=== PATIENT | male | born 1980 | race Caucasian/White ===

== ENCOUNTER 2017-12-01 16:16 | Emergency (ER) | payer OTHER ==
[~2017-12-01] VITALS: Ht 177.8 cm; Wt 100.5 kg
[2017-12-01 16:22] VITALS: BP 144/82; PULSE 91; RESP 18; TEMP 98.3; O2SAT 97
[2017-12-01] MEDS ORDERED: TETANUS/DIPHTHERIA TOXOID ADULT 0.5 ML VIAL IM ONE (17:15)
--- NOTE | 2017-12-01 17:21 | RADRPT ---
EXAM DATE/TIME: 12/01/2017 17:14 [place] COMPARISON: No previous studies available for comparison. INDICATIONS : Patient had syncopal episode and hit head, laceration to head. RADIATION DOSE: 38.47 CTDIvol (mGy) MEDICAL HISTORY : None SURGICAL HISTORY : None. ENCOUNTER: Initial ACUITY: 1 day PAIN SCALE: 7/10 LOCATION: cranial TECHNIQUE: Multiple contiguous axial images were obtained of the head. Using automated exposure control and adj ustment of the mA and/or kV according to patient size, radiation dose was kept as low as reasonably a chievable to obtain optimal diagnostic quality images. DICOM format image data is available electro nically for review and comparison. FINDINGS: CEREBRUM: The ventricles are normal for age. No evidence of midline shift, mass lesion, hemorrhage or acute in farction. No extra-axial fluid collections are seen. POSTERIOR FOSSA: The cerebellum and brainstem are intact. The 4th ventricle is midline. The cerebellopontine angle i s unremarkable. EXTRACRANIAL: The visualized portion of the orbits is intact. SKULL: The calvaria is intact. No evidence of skull fracture. There is soft tissue swelling and irregularit y over the right frontal bone. CONCLUSION: Soft tissue swelling and irregularity over the right frontal bone with no evidence of fracture or hemorrhage. Hernan Pereira MD on December 01, 2017 at 17:18 Board Certified Radiologist. This report was verified electronically.
[2017-12-01 17:24] LABS: AUTOMATED NEUTROPHIL # 6.1 TH/MM3 (1.8-7.7); BASOPHIL % 0.2 % (0.0-2.0); EOSINOPHIL # 0.2 TH/MM3 (0-0.4); EOSINOPHIL % 2.4 % (0.0-4.0); HEMATOCRIT 46.3 % (39.0-51.0); HEMOGLOBIN 15.6 GM/DL (13.0-17.0); LYMPH % 21.7 % (9.0-44.0); LYMPHOCYTE # 1.9 TH/MM3 (1.0-4.8); MEAN CELL VOLUME 85.2 FL (80.0-100.0); MEAN CORPUSCULAR HEMOGLOBIN 28.7 PG (27.0-34.0); MEAN CORPUSCULAR HGB CONC 33.7 % (32.0-36.0); MEAN PLATELET VOLUME 7.6 FL (7.0-11.0); MONO % 4.8 % (0.0-8.0); MONOCYTE # 0.4 TH/MM3 (0-0.9); NEUT % 70.9 % (16.0-70.0); PLATELET COUNT 272 TH/MM3 (150-450); RED BLOOD COUNT 5.43 MIL/MM3 (4.50-5.90); RED CELL DISTRIBUTION WIDTH 13.6 % (11.6-17.2); WHITE BLOOD COUNT 8.6 TH/MM3 (4.0-11.0)
[2017-12-01 17:32] LABS: ALBUMIN 4.1 GM/DL (3.4-5.0); ALT (GPT) 46 U/L (12-78); AST (GOT) 23 U/L (15-37); BICARBONATE 24.6 MEQ/L (21.0-32.0); BLOOD UREA NITROGEN 14 MG/DL (7-18); CALCIUM 8.8 MG/DL (8.5-10.1); CHLORIDE 108 MEQ/L (98-107); CREATININE 0.99 MG/DL (0.60-1.30); GLOMERULAR FILTRATION RATE 85 ML/MIN (>89); GLUCOSE,RANDOM 87 MG/DL (74-106); INTERNATIONAL NORMALIZED RATIO 0.9 RATIO; MAGNESIUM 2.4 MG/DL (1.5-2.5); PROTHROMBIN TIME - PATIENT 9.5 SEC (9.8-11.6); SODIUM (NA) 142 MEQ/L (136-145)
--- NOTE | 2017-12-01 17:33 | PD ---
HPI Chief Complaint: Syncope/Near-Syncope Time Seen by Provider: 17:02 Travel History International Travel<30 days: No Contact w/Intl Traveler<30days: No Traveled to known affect area: No History of Present Illness HPI 29-year-old male arrives following syncope episode. He was at work. He reports a severe cough and losing consciousness and falling to the ground striking his forehead against a concrete. Positive loss of consciousness reported. No fecal urinary incontinence. The patient woke up immediately and jump back to his feet. He reports he is a heavy cough for and that he is a smoker 2. He reports similar prior episodes have occurred. No chest pain or shortness of breath. Mild cephalgia reported to have a ER evaluation. Bleeding stopped with a bandage. [facility] Social History Tobacco Use: Yes Allergies-Medications (Allergen,Severity, Reaction): Coded Allergies: No Known Allergies (Unverified , 12/01/17) Review of Systems Except as stated in HPI: all other systems reviewed are Neg General / Constitutional: No: Fever Physical Exam Narrative GENERAL: 29-year-old male well-nourished well-developed no acute distress Vital Signs Date Time Temp Pulse Resp B/P (MAP) Pulse Ox O2 Delivery O2 Flow Rate FiO2 12/01/17 16:22 98.3 91 18 144/82 (102) 97 SKIN: Warm and dry. HEAD: Atraumatic. Normocephalic. 4 cm laceration just above the right eyebrow. EYES: Pupils equal and round. No scleral icterus. No injection or drainage. ENT: No nasal bleeding or discharge. Mucous membranes pink and moist. NECK: Trachea midline. No JVD. CARDIOVASCULAR: Regular rate and rhythm. RESPIRATORY: No accessory muscle use. Clear to auscultation. Breath sounds equal bilaterally. GASTROINTESTINAL: Abdomen soft, non-tender, nondistended. Hepatic and splenic margins not palpable. MUSCULOSKELETAL: Extremities without clubbing, cyanosis, or edema. No obvious deformities. NEUROLOGICAL: Awake and alert. No obvious cranial nerve deficits. Motor grossly within normal limits. Five out of 5 muscle strength in the arms and legs. Normal speech. PSYCHIATRIC: Appropriate mood and affect; insight and judgment normal. Data Data Last Documented VS Vital Signs Date Time Temp Pulse Resp B/P (MAP) Pulse Ox O2 Delivery O2 Flow Rate FiO2 12/01/17 16:22 98.3 91 18 144/82 (102) 97 Orders Orders Electrocardiogram (12/01/17 16:24) Complete Blood Count With Diff (12/01/17 16:24) Comprehensive Metabolic Panel (12/01/17 16:24) Magnesium (Mg) (12/01/17 16:24) Ckmb (Isoenzyme) Profile (12/01/17 16:24) Troponin I (12/01/17 16:24) Act Partial Throm Time (Ptt) (12/01/17 16:24) Prothrombin Time / Inr (Pt) (12/01/17 16:24) Ct Brain W/O Iv Contrast(Rout) (12/01/17 16:24) Tetanus/Diphtheria Tox Adult (Tetanus/Di (12/01/17 17:15) CKMB (12/01/17 17:00) CKMB% (12/01/17 17:00) Ed Discharge Order (12/01/17 18:32) Labs Laboratory Tests Test 12/01/17 17:00 White Blood Count 8.6 TH/MM3 Red Blood Count 5.43 MIL/MM3 Hemoglobin 15.6 GM/DL Hematocrit 46.3 % Mean Corpuscular Volume 85.2 FL Mean Corpuscular Hemoglobin 28.7 PG Mean Corpuscular Hemoglobin Concent 33.7 % Red Cell Distribution Width 13.6 % Platelet Count 272 TH/MM3 Mean Platelet Volume 7.6 FL Neutrophils (%) (Auto) 70.9 % Lymphocytes (%) (Auto) 21.7 % Monocytes (%) (Auto) 4.8 % Eosinophils (%) (Auto) 2.4 % Basophils (%) (Auto) 0.2 % Neutrophils # (Auto) 6.1 TH/MM3 Lymphocytes # (Auto) 1.9 TH/MM3 Monocytes # (Auto) 0.4 TH/MM3 Eosinophils # (Auto) 0.2 TH/MM3 Basophils # (Auto) 0.0 TH/MM3 CBC Comment DIFF FINAL Differential Comment Prothrombin Time 9.5 SEC Prothromb Time International Ratio 0.9 RATIO Activated Partial Thromboplast Time 24.3 SEC Blood Urea Nitrogen 14 MG/DL Creatinine 0.99 MG/DL Random Glucose 87 MG/DL Total Protein 7.9 GM/DL Albumin 4.1 GM/DL Calcium Level 8.8 MG/DL Magnesium Level 2.4 MG/DL Alkaline Phosphatase 91 U/L Aspartate Amino Transf (AST/SGOT) 23 U/L Alanine Aminotransferase (ALT/SGPT) 46 U/L Total Bilirubin 0.3 MG/DL Sodium Level 142 MEQ/L Potassium Level 3.8 MEQ/L Chloride Level 108 MEQ/L Carbon Dioxide Level 24.6 MEQ/L Anion Gap 9 MEQ/L Estimat Glomerular Filtration Rate 85 ML/MIN Total Creatine Kinase 170 U/L Creatine Kinase MB 1.4 NG/ML Troponin I LESS THAN 0.02 NG/ML MDM Medical Decision Making Medical Screen Exam Complete: Yes Emergency Medical Condition: Yes Medical Record Reviewed: Yes Differential Diagnosis Intracranial hemorrhage, skull fracture, laceration, anemia, arrhythmia, electrolyte imbalance Narrative Course CBC & BMP Diagram 12/01/17 17:00 Total Protein 7.9, Albumin 4.1, Calcium Level 8.8, Magnesium Level 2.4, Alkaline Phosphatase 91, Aspartate Amino Transf (AST/SGOT) 23, Alanine Aminotransferase (ALT/SGPT) 46, Total Bilirubin 0.3 Troponin less than 0.[address] 12/01/17 1624 Signed Impressions: Service Date/Time: Friday, December 01, 2017 17:14 - CONCLUSION: Soft tissue swelling and irregularity over the right frontal bone with no evidence of fracture or hemorrhage. Hernan Pereira MD Laceration repaired by the undersigned. EKG shows a sinus rhythm with normal axis and intervals no preexcitation morphology Patient is ready for discharge. Procedures Procedure Narrative LACERATION LOCATION: Right forehead LENGTH: 4 cm NUMBER OF STITCHES/QUE: 10 external, 2 internal REPAIR: The area of the laceration was prepped with Betadine and sterilely draped. The laceration was infiltrated with lidocaine with epinephrine. The wound was copiously irrigated and explored without evidence of foreign body, tendon injury or neurovascular injury. The wound was closed using 5-0 Ethilon. This was a 2 layer repair. With 2 5-0 Vicryl internal sutures. a sterile dressing was applied. The patient was advised to keep the dressing clean and dry. Patient tolerated the procedure well. Diagnosis Primary Impression: Syncope and collapse Additional Impression: Laceration of scalp Qualified Codes: S01.01XA - Laceration without foreign body of scalp, initial encounter Referrals: RETURN IN 9 DAYS FOR SUTURE REMOVAL Med/Other Pt SpecificInfo: No Change to Meds Disposition: DISCHARGE HOME Condition: Stable Maciel,Maynor C. MD Dec 01, 2017 17:33
[2017-12-01 17:38] LABS: ALKALINE PHOSPHATASE 91 U/L (45-117); TOTAL BILIRUBIN ADULT 0.3 MG/DL (0.2-1.0); TOTAL PROTEIN 7.9 GM/DL (6.4-8.2); TROPONIN I LESS THAN 0.02 NG/ML (0.02-0.05)
[2017-12-01 18:56] VITALS: BP 133/77; PULSE 91; RESP 16; O2SAT 98
--- NOTE | 2017-12-01 21:57 | EKG ---
Date Performed: 12/01/2017 Time Performed: 16:56:19 PTAGE: 37 years EKG: Sinus rhythm LOW QRS VOLTAGE IN EXTREMITY LEADS BORDERLINE ECG NO PREVIOUS TRACING DOCTOR: Todd Arevalo Interpretating Date/Time 12/01/2017 21:56:00
== END 2017-12-01 18:56 | disposition home or self-care (01) ==
LOC: NEPE 16:16
DX: R55 Syncope and collapse (principal); S01.01XA Laceration without foreign body of scalp, initial encounter; R94.31 Abnormal electrocardiogram [ECG] [EKG]; W01.198A Fall on same level from slipping, tripping and stumbling with subsequent striking against other object, initial encounter; Z72.0 Tobacco use; Z23 Encounter for immunization
CPT/HCPCS: 12052; 70450; 80053; 82550; 82552; 83735; 84484; 85025; 85610; 85730; 90471; 90714; 93005

== ENCOUNTER 2017-12-11 10:21 | Emergency (ER) | payer SELFPAY ==
[2017-12-11 10:25] VITALS: BP 134/78; PULSE 72; RESP 16; TEMP 98; O2SAT 96
--- NOTE | 2017-12-11 10:39 | PD ---
HPI Chief Complaint: Wound/Suture/Staple Re-Check Time Seen by Provider: 10:31 Travel History International Travel<30 days: No Contact w/Intl Traveler<30days: No Traveled to known affect area: No History of Present Illness HPI 37-year-old male presents to the emergency department for evaluation of suture removal to his right forehead that were placed on December 01, 2017. Patient denies any symptoms or complaints at this time. He denies any fevers or chills. No redness. No pain. No other symptoms or complaints. Mild severity. PFSH Past Medical History Diminished Hearing: No Hypertension: Yes Social History Alcohol Use: Yes (OCC) Tobacco Use: Yes Substance Use: No Allergies-Medications (Allergen,Severity, Reaction): Coded Allergies: No Known Allergies (Unverified , 12/11/17) Review of Systems Except as stated in HPI: all other systems reviewed are Neg Physical Exam Narrative GENERAL: Well-nourished, well-developed male patient, afebrile SKIN: Focused skin assessment warm/dry. Patient is healing laceration above the right forehead with [address] No erythema. No drainage. HEAD: Normocephalic. EYES: No scleral icterus. No injection or drainage. RESPIRATORY: No accessory muscle use. MUSCULOSKELETAL: No cyanosis, or edema. Data Data Last Documented VS Vital Signs Date Time Temp Pulse Resp B/P (MAP) Pulse Ox O2 Delivery O2 Flow Rate FiO2 12/11/17 10:25 98.0 72 16 134/78 (96) 96 MDM Medical Decision Making Medical Screen Exam Complete: Yes Emergency Medical Condition: Yes Medical Record Reviewed: Yes Differential Diagnosis Suture removal versus cellulitis versus dehiscence Narrative Course 37-year-old male presents to the emergency department for suture removal. Patient had 10 sutures placed to the right forehead on December 01, 2017. Sutures removed without difficulty. The patient was discharged in stable condition with instructions, including return instructions and follow up instructions. Diagnosis Primary Impression: Visit for suture removal Referrals: Primary Care Physician as needed Patient Instructions: General Instructions, Stitches Removal (ED) Additional Instructions: Clean gently with soap and water. Do not scrub. Follow-up with your primary care physician as needed. Return to the emergency department for any emergent symptoms. Med/Other Pt SpecificInfo: No Change to Meds Disposition: 01 DISCHARGE HOME Condition: Stable Huy,Marisol ENGINE W[employer] December 11, 2017 10:39
== END 2017-12-11 11:07 | disposition home or self-care (01) ==
LOC: NEPK 10:21
DX: S01.81XD Laceration without foreign body of other part of head, subsequent encounter (principal); X58.XXXD Exposure to other specified factors, subsequent encounter; Z48.02 Encounter for removal of sutures
CPT/HCPCS: 99281